=== PATIENT | male | born 1975 | race Caucasian/White ===

== ENCOUNTER 2024-04-16 16:55 | Inpatient (IN) | payer SELFPAY ==
[~2024-04-16] VITALS: Ht 167.6 cm; Wt 154.2 kg
[2024-04-16] MEDS: PANTOPRAZOLE SODIUM 40 MG/VIAL IV STA (17:43)
[2024-04-16] MEDS: ONDANSETRON HCL 4MG/2ML INJ IV STA (17:44)
[2024-04-16] MEDS: MORPHINE SULFATE 4 MG/ML INJ (FOR IV/IM USE) IV STA (17:44)
[2024-04-16 17:59] LABS: BASOPHILS % 0.2 % (0.0-2.0); EOSINOPHILS % 1.8 % (0.0-5.0); HEMATOCRIT. 45.5 % (42.0-52.0); HEMOGLOBIN. 15.7 g/dL (14.0-18.0); LYMPHOCYTES % 23.7 % (20.0-50.0); MEAN CORPUSCULAR HEMOGLOBIN 31.1 pg (28.0-32.0); MEAN CORPUSCULAR HGB CONC 34.5 g/dL (31.0-37.0); MEAN CORPUSCULAR VOLUME 90.2 fL (80.0-94.0); MEAN PLATELET VOLUME 8.9 fl (7.4-10.4); MONOCYTES % 7.2 % (2.0-8.0); NEUTROPHILS % 67.1 % (40.0-76.0); PLATELET 213 x1000/uL (130-400); RED BLOOD CELL COUNT 5.05 mill/uL (4.7-6.1); RED CELL DISTRIBUTION WIDTH 13.1 % (11.6-14.6); WHITE BLOOD COUNT 8.8 x1000/uL (4.5-11.0)
[2024-04-16 18:03] LABS: CARBON DIOXIDE 23 mEq/L (21-32); CHLORIDE 106 mEq/L (98-107); POTASSIUM 3.7 mEq/L (3.5-5.1); SODIUM 137 mEq/L (136-145)
[2024-04-16 18:04] LABS: CALCIUM 9.2 mg/dL (8.7-10.4)
[2024-04-16 18:08] LABS: CREATININE 0.8 mg/dL (0.6-1.3); PROTHROMBIN TIME 10.8 sec (9.6-11.0)
[2024-04-16 18:09] LABS: GLUCOSE 209 mg/dL (70-105); UREA NITROGEN BLOOD 12 mg/dL (9-23)
[2024-04-16 18:10] LABS: ALANINE AMINOTRANSFERASE 66 IU/L (10-49); ALBUMIN 4.2 g/dL (3.2-4.8); ASPARTATE AMINOTRANSFERASE 39 IU/L (<34)
[2024-04-16 18:11] LABS: BILIRUBIN DIRECT 0.2 mg/dL (<=3.0); BILIRUBIN TOTAL 0.5 mg/dL (0.1-1.0); ETHANOL BLOOD < 10 mg/dL (<10); LACTIC ACID 3.5 mmol/L (0.4-2.0); PROTEIN TOTAL 7.5 g/dL (6.0-8.3)
[2024-04-16] MEDS: SODIUM CHLORIDE 0.9% 1,000 ML IV ONE (19:06)
[2024-04-16] MEDS ORDERED: HYDROMORPHONE HCL/PF 2MG/ML INJ IV ONE (20:00)
[2024-04-16] MEDS: HYDROMORPHONE HCL/PF 1MG/ML INJ IV NR (20:15)
[2024-04-16] MEDS ORDERED: GUAIFENESIN 200MG/10ML SUGAR FREE UDC PO PRN (21:30)
[2024-04-16] MEDS ORDERED: DEXTROSE 50% WATER 50ML SYRINGE IV PRN (21:30)
[2024-04-16] MEDS ORDERED: MAGNESIUM/ALUMINUM HYDROXIDE/SIMETHICONE 30ML UDC PO PRN (21:30)
[2024-04-16] MEDS ORDERED: LORAZEPAM 2MG/ML INJ IV PRN (21:30)
[2024-04-16] MEDS ORDERED: NA PHOS,M-B/NA PHOS,DI-BA ENEMA 118ML PR PRN (21:30)
[2024-04-16] MEDS ORDERED: IPRATROPIUM/ALBUTEROL 0.5-3(2.5)MG/3ML NEB HHN PRN (21:30)
[2024-04-16] MEDS ORDERED: CLONIDINE 0.1MG TABLET PO PRN (21:30)
[2024-04-16] MEDS ORDERED: MORPHINE SULFATE 2 MG/ML INJ (NOT FOR IM USE) IV PRN (21:30)
[2024-04-16] MEDS ORDERED: DOCUSATE SODIUM 100MG CAPSULE PO PRN (21:30)
[2024-04-16] MEDS ORDERED: ONDANSETRON HCL 4MG/2ML INJ IV PRN (21:30)
[2024-04-16] MEDS ORDERED: HYDRALAZINE 20MG/ML VIAL IV PRN (21:30)
[2024-04-16] MEDS: PANTOPRAZOLE SODIUM 40 MG/VIAL IV SCH (22:16)
[2024-04-16] MEDS: NITROGLYCERIN OINT 1GM/INCH UDPKT TD SCH (22:17)
[2024-04-16] MEDS: DEXT 5%/LACTATED RINGERS 1,000 ML IV SCH (22:17)
[2024-04-16 23:07] VITALS: BP 154/96; PULSE 75; RESP 20; TEMP 36.0288
[2024-04-16 23:24] LABS: LACTATE DEHYDROGENASE 153 IU/L (120-246)
[2024-04-16 23:25] LABS: PHOSPHORUS 3.3 mg/dL (2.5-4.9); TROPONIN I HIGH SENSITIVITY 10 ng/L (3.0-53)
[2024-04-16 23:26] LABS: CREATINE KINASE 42 IU/L (46-171)
[2024-04-17] VITALS: BP 154/96; PULSE 70; RESP 20; TEMP 36.00288; O2SAT 95
[2024-04-17] MEDS ORDERED: NALOXONE HCL 0.4MG/ML VIAL IV PRN (00:15)
[2024-04-17] MEDS ORDERED: LORAZEPAM 2MG/ML INJ IV PRN (00:30)
[2024-04-17] MEDS: FOLIC ACID 1 MG, THIAMINE HCL 100 MG, MVI, ADULT NO.1 10 ML in DEXTROSE 5% WATER 1,000 ML IV SCH (02:02)
[2024-04-17] MEDS: DIPHENHYDRAMINE 50MG/ML VIAL IV NR (02:09)
[2024-04-17] MEDS: HYDROMORPHONE HCL/PF 1MG/ML INJ IV PRN (02:29)
[2024-04-17 04:00] VITALS: BP 142/83; PULSE 74; RESP 20; TEMP 36.22512; O2SAT 97
[2024-04-17 05:05] LABS: CLARITY URINE CLEAR (CLEAR); COLOR URINE DARK YELLOW (YELLOW); GLUCOSE URINE 1+ (NEGATIVE); KETONES URINE NEGATIVE (NEGATIVE); LEUKOCYTE ESTERASE URINE NEGATIVE (NEGATIVE); NITRITE URINE NEGATIVE (NEGATIVE); OCCULT BLOOD URINE NEGATIVE (NEGATIVE); PROTEIN URINE 1+ (NEGATIVE); SPECIFIC GRAVITY URINE 1.027 (1.005-1.030)
[2024-04-17 05:29] LABS: *AMPHETAMINES SCREEN URINE NEGATIVE (NEGATIVE); *BENZODIAZEPINES SCREEN URINE NEGATIVE (NEGATIVE)
[2024-04-17 05:30] LABS: *BARBITURATES SCREEN URINE NEGATIVE (NEGATIVE); *COCAINE SCREEN URINE PRESUMPTIVE POSITIVE (NEGATIVE); CANNABINOID URINE SCREEN NEGATIVE (NEGATIVE); ECSTASY MDMA SCREEN URINE NEGATIVE (NEGATIVE); METHADONE URINE SCREEN NEGATIVE (NEGATIVE); OPIATES URINE SCREEN PRESUMPTIVE POSITIVE (NEGATIVE); PHENCYCLIDINE URINE SCREEN NEGATIVE (NEGATIVE)
[2024-04-17 05:38] LABS: MUCUS URINE 1+ /lpf (NONE/TRACE); SQUAMOUS EPITHELIAL CELL URINE FEW /lpf (RARE/1+)
[2024-04-17 05:40] LABS: BACTERIA URINE NONE SEEN; RBC URINE 0-2 /hpf (0-2); WBC URINE 0-2 /hpf (0-2)
[2024-04-17] MEDS: BLOOD SUGAR DIAGNOSTIC STRIP TEST SCH ×2 (07:20→12:20)
[2024-04-17] MEDS ORDERED: INSULIN LISPRO 100 UNITS/ML SUBCUT SCH (07:50)
[2024-04-17 08:00] VITALS: BP 118/61; PULSE 101; RESP 19; TEMP 36.22512; O2SAT 99
[2024-04-17] MEDS ORDERED: DEXTROSE 50% WATER 50ML SYRINGE IV PRN (08:30)
[2024-04-17 09:15] LABS: BASOPHILS % 0.2 % (0.0-2.0); EOSINOPHILS % 2.7 % (0.0-5.0); HEMATOCRIT. 41.8 % (42.0-52.0); HEMOGLOBIN. 14.2 g/dL (14.0-18.0); LYMPHOCYTES % 30.6 % (20.0-50.0); MEAN CORPUSCULAR HEMOGLOBIN 31.1 pg (28.0-32.0); MEAN CORPUSCULAR VOLUME 91.5 fL (80.0-94.0); MEAN PLATELET VOLUME 8.8 fl (7.4-10.4); MONOCYTES % 8.8 % (2.0-8.0); NEUTROPHILS % 57.7 % (40.0-76.0); PLATELET 165 x1000/uL (130-400); RED BLOOD CELL COUNT 4.57 mill/uL (4.7-6.1); WHITE BLOOD COUNT 6.4 x1000/uL (4.5-11.0)
[2024-04-17 09:28] LABS: CHLORIDE 105 mEq/L (98-107); POTASSIUM 3.6 mEq/L (3.5-5.1); SODIUM 136 mEq/L (136-145)
[2024-04-17 09:29] LABS: CALCIUM 8.7 mg/dL (8.7-10.4); CARBON DIOXIDE 27 mEq/L (21-32)
[2024-04-17 09:34] LABS: CREATININE 0.8 mg/dL (0.6-1.3); GLUCOSE 222 mg/dL (70-105); TRIGLYCERIDE 97 mg/dL (0-150); UREA NITROGEN BLOOD 10 mg/dL (9-23)
[2024-04-17 09:35] LABS: LDL CHOLESTEROL 66 mg/dL (5-100)
[2024-04-17 09:36] LABS: AMYLASE 22 IU/L (30-118); CHOLESTEROL 119 mg/dL (<200); CREATINE KINASE 31 IU/L (46-171); HDL CHOLESTEROL 39 mg/dL (>55); T4 FREE 1.27 ng/dL (0.89-1.76); THYROID STIMULATING HORMONE 1.26 uIU/mL (0.55-4.78)
[2024-04-17 09:55] LABS: HEPATITIS B SURFACE ANTIGEN NEGATIVE (Negative)
[2024-04-17 10:16] LABS: HEPATITIS C AB NON REACTIVE (Neg) (Negative)
[2024-04-17 12:00] VITALS: BP 120/64; PULSE 75; RESP 19; TEMP 36.3918; O2SAT 96
[2024-04-17] MEDS: INSULIN LISPRO 100 UNITS/ML SUBCUT SCH (12:50)
[2024-04-17 16:00] VITALS: BP 125/70; PULSE 78; RESP 18; TEMP 36.44736; O2SAT 98
[2024-04-17] MEDS: SODIUM CHLORIDE 0.9% 1,000 ML IV SCH (17:45)
[2024-04-17 20:00] VITALS: BP 122/74; PULSE 81; RESP 20; TEMP 37.61412; O2SAT 95
[2024-04-17] MEDS: DEXT 5%/0.9% NACL 1,000 ML IV SCH (22:10)
[2024-04-18 04:00] VITALS: BP 142/91; PULSE 82; RESP 20; TEMP 35.8362; O2SAT 95
[2024-04-18 08:00] VITALS: BP 126/82; PULSE 71; RESP 18; TEMP 35.5584; TEMP 35.55840; O2SAT 95
[2024-04-18 15:58] VITALS: BP 82/71; PULSE 126; TEMP 97.3; O2SAT 96
== END 2024-04-18 16:45 | disposition home or self-care (01) | DRG 247 ==
LOC: ER 16:55 → 6EST 21:01 → EDBEDREQ 21:03 → ER 23:07
PROVIDERS: ADMIT Internal Medicine; ATTEND Internal Medicine
PROC: 0D9670Z Drainage of Stomach with Drainage Device, Via Natural or Artificial Opening (ICD-10-PCS; principal; 2024-04-17)
DX: K56.609 Unspecified intestinal obstruction, unspecified as to partial versus complete obstruction (principal); R16.2 Hepatomegaly with splenomegaly, not elsewhere classified; E11.65 Type 2 diabetes mellitus with hyperglycemia; L92.8 Other granulomatous disorders of the skin and subcutaneous tissue; I10 Essential (primary) hypertension; F10.10 Alcohol abuse, uncomplicated; Z20.822 Contact with and (suspected) exposure to COVID-19; Z79.4 Long term (current) use of insulin; Z90.49 Acquired absence of other specified parts of digestive tract; Z79.899 Other long term (current) drug therapy
CPT/HCPCS: 36415; 71045; 74018; 74176; 76700; 80048; 80061; 80076; 80305; 80320; 81003; 82150; 82550; 82962; 83036; 83605; 83615; 83735; 84100; 84439; 84443; 84484; 85025; 85044; 85379; 86705; 86850; 86900; 87340; 87426; 93970; 99285; C1893; J1171; J1200; J1815; J2270; J2405; J2470; J3411; J3490; J7030; J7042; J7070; J7121; G0480